=== PATIENT | male | born 1975 | race Caucasian/White ===

== ENCOUNTER 2021-05-29 19:28 | Emergency (ER) | payer MEDICARE, OTHER, SELFPAY ==
[2021-05-29 19:32] VITALS: BP 155/109; PULSE 78; RESP 16; TEMP 35.9; O2SAT 98
[2021-05-29 20:16] LABS: Bilirubin Negative (Negative); Blood Negative (Negative); Clarity Clear (Clear); Glucose Negative (Negative); Ketones Negative (Negative); Leukocyte Esterase Negative (Negative); Nitrite Negative (Negative); Specific Gravity >= 1.030 (1.005-1.025); Urobilinogen 0.2 EU/dL (Up TO 0.2)
[2021-05-29 20:31] LABS: Abs Immature Grans 0.02 10^3/uL (0.0-0.06); Absolute Basophil Count 0.01 10^3/uL (0.0-0.2); Absolute Eosinophil Count 0.11 10^3/uL (0.0-0.7); Absolute Lymphocyte Count 1.97 10^3/uL (1.2-3.4); Absolute Monocyte Count 0.74 10^3/uL (0.1-0.8); Absolute Neutrophil Count 3.66 10^3/uL (1.2-6.7); Basophils % 0.2; Eosinophils % 1.7; HCT 47.1 % (40.0-50.0); HGB 16.4 g/dL (13.5-17.5); Immature Grans % 0.3; Lymphocytes % 30.3; MCH 31.7 pg (27.0-33.0); MCHC 34.8 % (32.0-36.0); MCV 90.9 fL (80-95); MPV 10.2 fL (8.0-11.0); Monocytes % 11.4; Neutrophils % 56.1; Nucleated RBC 0 %; Platelet Count 226 10^3/uL (130-400); RBC 5.18 10^6/uL (4.36-5.78); RDW 11.8 % (11.8-14.1); RDW-SD 39.3 fL; WBC 6.51 10^3/uL (4.4-10.8)
[2021-05-29 20:43] LABS: ALT 98 U/L (16-63); AST 31 U/L (15-37); Albumin 4.6 g/dL (3.4-5.0); Alkaline Phosphatase 115 U/L (46-116); Anion Gap 7.2 mmol/L (3-11); BUN 10 mg/dL (7-18); Bilirubin, Total 1.1 mg/dL (0.2-1.0); CO2 29.8 mmol/L (21.0-32.0); CREATININE 1.1 mg/dL (0.70-1.30); Calcium 9.3 mg/dL (8.5-10.1); Chloride 102 mmol/L (98-107); Glucose 97 mg/dL (74-106); Lipase 199 U/L (73-393); Potassium 3.9 mmol/L (3.5-5.1); Sodium 139 mmol/L (136-145); Total Protein 8.4 g/dL (6.4-8.2)
--- NOTE | 2021-05-29 21:01 | ED.GENADUL_ITS ---
Discharge Plan Disposition Patient Disposition: HOME Condition: Stable Discharge Details Clinical Impression: Abdominal pain Primary Care Provider: Unknown,Unknown ED Provider: Teodoro Borges Home Meds and New Rx's Prescriptions: Continued omeprazole 20 mg Tablet,Delayed Release (Dr/Ec) 20 mg PO DAILY 0RF multivitamin Tablet 1 tab PO DAILY 0RF Discharge Instructions Instructions: Abdominal Pain (ED) Additional Instructions: Laboratory values do not reveal any obvious emergent process. Please watch for new or worsening symptoms and return to the ER for any concerns. Otherwise please follow-up with your primary care provider as already scheduled. Medical Decision Making This is a 45-year-old gentleman, past medical history of GERD, cholecystectomy, presents to the ER for evaluation of abdominal pain. Patient states that he has had occasional loose stool over the past couple of weeks, was at a movie theater a few days ago and after eating popcorn became nauseous, and then noticed some abdominal pain that is all over, goes both on the left and right side, and occ asionally has back pain which is primarily on his right side. Patient states that he is concerned as he looked on the Internet and wants to be sure that he does not have pancreatitis, stomach cancer, colon cancer, or appendicitis. He has not taken any medication for his symptoms. He is up in the area visiting, leaving tomorrow, and already has an appointment with his primary care provider for this. Clinically he appears well, nontoxic, abdomen and back are soft, nontender, benign. He denies any dysuria, pain that radiates into his groin, testicles. Plan is to obtain IV access, routine screening laboratory values and reassess. Patient is agreeable to this plan. He does state that he has had kidney stones in the past but feel nothing like today's present Laboratory values reveal a white blood cell count of 6.51, no evidence of anemia, platelet count 226. Electrolytes unremarkable, GFR is greater than 60, total bili of 1.1, AST 31 ALT 98 alk phosphatase 115, lipase 199. Urinalysis without signs of infection or hematuria Discussed work-up with patient, he is relieved. Although I am unable to reproduce any discomfort, will provide 30 IV Toradol for discomfort. We discussed disposition. We discussed that we could pursue CT imaging for further evaluation of the symptoms. Overall he reports improvement of his symptoms and feeling very relieved. He is visiting and is going home tomorrow, already has an appointment set up with his primary care provider. He declines CT at this time and reports that he can pursue this with his primary care provider if symptoms persist. We also discussed that potential GI referral for endoscopy and/or colonoscopy may be required when she returns home. Standard discharge and return precautions were provided. This documentation was generated using [employer] dictation system, please disregard any oddities of phrase or misspellings. Lab Data Lab results reviewed: Yes I reviewed the patient's lab results. Labs: Laboratory Tests Range/Units 05/29/21 05/29/21 05/29/21 20:10 20:16 20:16 WBC (4.4-10.8) 10^3/uL 6.51 RBC (4.36-5.78) 10^6/uL 5.18 Hgb (13.5-17.5) g/dL 16.4 Hct (40.0-50.0) % 47.1 MCV (80-95) fL 90.9 MCH (27.0-33.0) pg 31.7 MCHC (32.0-36.0) % 34.8 RDW (11.8-14.1) % 11.8 Plt Count (130-400) 10^3/uL 226 MPV (8.0-11.0) fL 10.2 Immature Gran % 0.3 Neutrophils % 56.1 Lymphocytes % 30.3 Monocytes % 11.4 Eosinophils % 1.7 Basophils % 0.2 Nucleated RBC % % 0 Absolute Neutrophils (1.2-6.7) 10^3/uL 3.66 Absolute Lymphocytes (1.2-3.4) 10^3/uL 1.97 Absolute Monocytes (0.1-0.8) 10^3/uL 0.74 Absolute Eosinophils (0.0-0.7) 10^3/uL 0.11 Absolute Basophils (0.0-0.2) 10^3/uL 0.01 Sodium (136-145) mmol/L 139 Potassium (3.5-5.1) mmol/L 3.9 Chloride (98-107) mmol/L 102 Carbon Dioxide (21.0-32.0) mmol/L 29.8 Anion Gap (3-11) mmol/L 7.2 BUN (7-18) mg/dL 10 Creatinine (0.70-1.30) mg/dL 1.1 Estimated GFR/1.73 m2 (mL/min/1.73m2) >= 60.00 Glucose (74-106) mg/dL 97 Calcium (8.5-10.1) mg/dL 9.3 Total Bilirubin (0.2-1.0) mg/dL 1.1 H AST (15-37) U/L 31 ALT (16-63) U/L 98 H Alkaline Phosphatase (46-116) U/L 115 Total Protein (6.4-8.2) g/dL 8.4 H Albumin (3.4-5.0) g/dL 4.6 Lipase (73-393) U/L 199 Urine Color (Yellow) Yellow Urine Clarity (Clear) Clear Urine pH (5-8) 6.0 Ur Specific [place] (1.005-1.025) >= 1.030 H Urine Protein (Negative) mg/dL Negative Urine Ketones (Negative) mg/dL Negative Urine Blood (Negative) Negative Urine Nitrite (Negative) Negative Urine Bilirubin (Negative) Negative Urine Urobilinogen (Up TO 0.2) EU/dL 0.2 Ur Leukocyte Esterase (Negative) Negative Urine Glucose (Negative) mg/dL Negative HPI General Mode of arrival: ambulatory . Date/Time Provider Initiated Documentation: 05/29/21 19:54 . Limitations to Documentation: no limitations . Information obtained by: patient . History of Present Illness 45 year old M presents to the emergency department with the chief complaint of Abdominal pain, described as moderate, with intensity rated at 4. Quality is described as aching, and is localized to the back and abdomen. Patient reports no radiation. Patient started experiencing this day(s) (2) and it has been intermittent. improves with No relieving factors improve symptom(s), No exacerbating factors reported . Patient notes denies chest pain, cough, fever/chills, loss of appetite and nausea/vomiting. Patient did receive the following treatments prior to arrival, none Related Data Home Medications Medication Instructions Recorded Confirmed multivitamin 1 tab PO DAILY 05/29/21 05/29/21 omeprazole 20 mg tablet,delayed 20 mg PO DAILY 05/29/21 05/29/21 release Allergies Allergy/AdvReac Type Severity Reaction Status Date / Time No Known Allergies Allergy Unverified 05/29/21 19:45 General Stated Complaint: Abd Prob PHILIP: 3 Review of Systems Constitutional Constitutional: Denies fever(s) and Denies headache(s) ENT Ears, Nose, Mouth, and Throat: Denies headache(s) Cardiovascular Cardiovascular: Denies chest pain and Denies dyspnea Respiratory Respiratory: Denies dyspnea Gastrointestinal Gastrointestinal: Reports abdominal pain, Denies melena, Denies hematochezia, Denies constipation, Reports loose stools (Intermittently for 2-3), Denies nausea and Denies vomiting Musculoskeletal Musculoskeletal: Denies back pain, Denies myalgias, Denies numbness and Denies tingling Integumentary/Breasts Skin/Breast: Denies rash Neurologic Neurologic: Denies headache(s), Denies numbness and Denies tingling PFSH All Active Problems (Updated 05/29/21 @ 21:10 by JOSE Olivier) Abdominal pain (Acute) Social History Smoking/Tobacco Use Status: Current-Occasional Smoking risk assessment performed?: Yes Alcohol Intake: current Alcohol Intake frequency: holidays/special occasions only Drug use: Rarely Substance use type: marijuana Do you feel safe at home: Yes Do you feel safe in your relationship?: Yes Exam Const General: cooperative, healthy appearing, comfortable, no acute distress and anxious Orientation: alert and awake HENRI Head: normal to inspection, normocephalic and atraumatic Face and sinus: normal facial exam Mouth: moist mucous membranes Eyes General: appearance normal, both eyes and all related structures Conjunctivae: conjunctivae normal Neck Neck: normal visual inspection, trachea midline and supple Resp Effort & Inspection: normal respiratory effort and able to speak in complete sentences Auscultation: clear to auscultation bilaterally Cardio Rate: regular rate Rhythm: regular rhythm GI Inspection: normal to inspection Palpation: soft, not firm, no guarding, no pulsatile masses and nontender Auscultation: normal bowel sounds Back/Spine/Pelvis Back: no CVA tenderness and No back tenderness Skin General skin exam: no rashes or lesions noted Neuro General: patient alert, patient awake, moves all extremities and no focal motor deficits Cognition: normal cognition Speech: speech normal Gait: normal gait Sensory Exam: no sensory deficits noted Extrem General: normal to inspection, full ROM and capillary refill normal Psych Appearance: grossly normal Mental Status: mental status grossly normal Course Vital Signs Vital signs: Vital Signs Temperature 35.9 C L 05/29/21 19:32 Pulse 78 05/29/21 19:32 Respiratory Rate 16 05/29/21 19:32 Blood Pressure 155/109 H 05/29/21 19:32 Pulse Oximetry 98 05/29/21 19:32 Temperature 35.9 C L 05/29/21 19:32 Temperature Source Skin 05/29/21 19:32 Pulse 78 05/29/21 19:32 Respiratory Rate 16 05/29/21 19:32 Respiratory Effort 05/29/21 19:43 Blood Pressure 155/109 H 05/29/21 19:32 Blood Pressure Position Sitting 05/29/21 19:32 Pulse Oximetry 98 05/29/21 19:32 Oxygen Delivery Method Room Air 05/29/21 19:32 Oxygen Flow Rate 0 05/29/21 19:32 Pain Level 9 05/29/21 19:32 Comment 05/29/21 19:32 Lab/Test Results Lab/Test Results: Laboratory Tests Range/Units 05/29/21 05/29/21 05/29/21 20:10 20:16 20:16 WBC (4.4-10.8) 10^3/uL 6.51 RBC (4.36-5.78) 10^6/uL 5.18 Hgb (13.5-17.5) g/dL 16.4 Hct (40.0-50.0) % 47.1 MCV (80-95) fL 90.9 MCH (27.0-33.0) pg 31.7 MCHC (32.0-36.0) % 34.8 RDW (11.8-14.1) % 11.8 Plt Count (130-400) 10^3/uL 226 MPV (8.0-11.0) fL 10.2 Immature Gran % 0.3 Neutrophils % 56.1 Lymphocytes % 30.3 Monocytes % 11.4 Eosinophils % 1.7 Basophils % 0.2 Nucleated RBC % % 0 Absolute Neutrophils (1.2-6.7) 10^3/uL 3.66 Absolute Lymphocytes (1.2-3.4) 10^3/uL 1.97 Absolute Monocytes (0.1-0.8) 10^3/uL 0.74 Absolute Eosinophils (0.0-0.7) 10^3/uL 0.11 Absolute Basophils (0.0-0.2) 10^3/uL 0.01 Sodium (136-145) mmol/L 139 Potassium (3.5-5.1) mmol/L 3.9 Chloride (98-107) mmol/L 102 Carbon Dioxide (21.0-32.0) mmol/L 29.8 Anion Gap (3-11) mmol/L 7.2 BUN (7-18) mg/dL 10 Creatinine (0.70-1.30) mg/dL 1.1 Estimated GFR/1.73 m2 (mL/min/1.73m2) >= 60.00 Glucose (74-106) mg/dL 97 Calcium (8.5-10.1) mg/dL 9.3 Total Bilirubin (0.2-1.0) mg/dL 1.1 H AST (15-37) U/L 31 ALT (16-63) U/L 98 H Alkaline Phosphatase (46-116) U/L 115 Total Protein (6.4-8.2) g/dL 8.4 H Albumin (3.4-5.0) g/dL 4.6 Lipase (73-393) U/L 199 Urine Color (Yellow) Yellow Urine Clarity (Clear) Clear Urine pH (5-8) 6.0 Ur Specific [place] (1.005-1.025) >= 1.030 H Urine Protein (Negative) mg/dL Negative Urine Ketones (Negative) mg/dL Negative Urine Blood (Negative) Negative Urine Nitrite (Negative) Negative Urine Bilirubin (Negative) Negative Urine Urobilinogen (Up TO 0.2) EU/dL 0.2 Ur Leukocyte Esterase (Negative) Negative Urine Glucose (Negative) mg/dL Negative
[2021-05-29] MEDS: Ketorolac 30 MG/ML VIAL IVP (21:09)
[2021-05-29 21:10] VITALS: BP 127/88; PULSE 68; RESP 18; O2SAT 99
== END 2021-05-29 21:13 | disposition home or self-care (01) ==
PROVIDERS: Emergency Provider Physician Assistant
DX: R10.9 Unspecified abdominal pain (principal)
CPT/HCPCS: 36415; 80053; 83690; 96374; 99284; 81003; 85025; 99283; J1885